=== PATIENT | male | born 2005 | race Caucasian/White ===

== ENCOUNTER 2025-07-22 16:32 | Emergency (ER) | payer OTHER ==
[~2025-07-22] VITALS: Ht 167.6 cm; Wt 64.2 kg
[2025-07-22] MEDS ORDERED: GNP1000T11 PO (16:44)
[2025-07-22] MEDS ORDERED: WELLTAB38 PO (16:44)
[2025-07-22] MEDS ORDERED: ACET-683 PO (16:44)
[2025-07-22 20:22] VITALS: BP 123/73; TEMP 99.1; O2SAT 98
== END 2025-07-22 22:07 | disposition home or self-care (01) ==
LOC: M ED 16:32
DX: S06.0X0A Concussion without loss of consciousness, initial encounter (principal); Y92.9 Unspecified place or not applicable; Y93.9 Activity, unspecified; Y99.9 Unspecified external cause status; V49.40XA Driver injured in collision with unspecified motor vehicles in traffic accident, initial encounter; Z79.1 Long term (current) use of non-steroidal anti-inflammatories (NSAID); Z79.899 Other long term (current) drug therapy